=== PATIENT | female | born 1990 ===

== ENCOUNTER 2019-05-24 07:30 | Outpatient (CLI) | payer OTHER ==
[~2019-05-24] VITALS: Ht 160 cm; Wt 54.4 kg
[2019-05-24] MEDS ORDERED: LOESTRIN1 EAC1 PO (08:03)
[2019-05-24 08:11] VITALS: BP 102/65
[2019-05-24] MEDS ORDERED: Omnipaque-300 100ml vial INJ ONE (08:45)
--- NOTE | 2019-05-24 08:47 | Pre-Procedure Note/Attestation ---
Pre-Procedure Note/Attestation Complete Prior to Procedure Planned Procedure: not applicable Procedure Narrative: cervical epidural with platelet rich plasma Indications for Procedure Pre-Operative Diagnosis: cervical disc displacement Attestation I attest that I discussed the nature of the procedure; its benefits; risks and complications; and alternatives (and the risks and benefits of such alternatives ), prior to the procedure, with the patient (or the patient's legal motor vehicle representative). I attest that, if there was a reasonable possibility of needing a blood transfusion, the patient (or the patient's legal motor vehicle representative) was given the [facility] standardized written summary, pursuant to the Steven [place] Blood Safety Act ([place] Health and Safety Code # 1645, as amended). I attest that I re-evaluated the patient just prior to the surgery and that there has been no change in the patient's H&P, except as documented below: Monique Mcleod MD May 24, 2019 08:47
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
[2019-05-24 09:20] VITALS: BP 106/66
--- NOTE | 2019-05-24 11:27 | Brief Operative Note ---
Immediate Post Operative Note Operative Note Chief Complaint: Neck pain with radiation to the shoulder Pre-op Diagnosis: cervical disc displacement Procedure: Cervical epidural injection with PRP Post-op Diagnosis: cervical disc disorder with radiculopathy Post-op Diagnosis: same as pre-op Findings: consistent w/pre-op dx studies Surgeon: Monique Mcleod M.D. [employer]aterpillar Operator: none Additional Surgeons: none Anesthesiologist: none Anesthesia: local Specimen: none Complications: none Condition: stable Fluids: none Estimated Blood Loss: none Drains: none Packing: none Tourniquet time: 0 - min Implant(s) used?: Monique Dee MD May 24, 2019 11:27
--- NOTE | 2019-05-24 11:32 | Discharge Summary ---
Discharge Summary Hospital Course Date of Admission 05/24/2019 Date of Discharge 05/24/2019 Admitting Diagnosis Cervical disc displacement with radiculopathy Reason for Hospitalization: short stay HPI Tiff Perkins is a 29 year old female who was admitted on for Cervical Disc Disorder W/Radiculopaty Consultations none Procedures Cervical epidural injection with platelet rich plasma Hospital Course short stay Discharge Condition Upon Discharge: stable Discharge Disposition Patient was discharged to home. Discharge Diagnoses: (1) Displacement of cervical intervertebral disc with radiculopathy Discharge Instructions Discharge Instructions Follow up with: Dr. Mcleod Diet: regular Activity: as tolerated, okay to shower For Surgical Patients Dressing Care: keep dry and clean May shower: Yes Contact your physician for: bleeding, pain, tenderness, redness, swelling, yellowish discharge in the op. site Monique Mcleod MD May 24, 2019 11:32
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
--- NOTE | 2019-05-24 17:12 | Diagnostic Imaging Report ---
INDICATION: Pain, intraoperative TECHNIQUE: Intraoperative imaging Fluoroscopy time: 14.5 seconds Total dose: [id number] mGym2 Total number of images: One COMPARISON: None FINDINGS: Intraoperative images demonstrate injection of contrast into what is presumably the cervical epidural space IMPRESSION: Intraoperative imaging, as described
== END 2019-05-24 09:40 | disposition home or self-care (01) ==
LOC: RAD 07:30 → EDSTATUS 11:46
DX: M54.12 Radiculopathy, cervical region (principal)
CPT/HCPCS: 62321; 76000; 81025; Q9967